=== PATIENT | female | born 1975 | race Caucasian/White ===

== ENCOUNTER 2018-11-27 07:34 | Outpatient (CLI) | payer BC ==
--- NOTE | 2018-11-27 09:04 | Mammography Report ---
Reason: SCREENING MAMMO Procedure Date: 11/27/2018 Accession Number: [id number] / [id number] Procedure: JEFF - Screening Mammo w/Kong CPT Code: FULL RESULT: EXAM: Screening Mammo w/Kong DATE: 11/27/2018 8:37 AM CLINICAL HISTORY: Routine screening. Baseline exam. No reported personal or family history of breast cancer. TECHNIQUE: Bilateral CC and MLO views were obtained. COMPARISON: None FINDINGS: The breasts demonstrate heterogeneously dense fibroglandular parenchyma bilaterally. Bilateral breasts: There are no suspicious masses, calcifications or areas of distortion. Few benign morphology calcifications are noted in the upper outer left breast. IMPRESSION: Benign findings RECOMMENDATION: Routine annual screening unless otherwise clinically indicated. BI-RADS CATEGORY 2: Benign findings STANDARD QUALIFYING STATEMENTS: 1. This examination was not reviewed with the aid of Computer-Aided Detection (CAD). 2. A negative or benign imaging report should not preclude biopsy if clinically suspicious findings are present. 3. Dense breasts may obscure an underlying neoplasm. 4. This examination was reviewed with the aid of 3D breast imaging (tomosynthesis).
== END 2018-11-27 07:35 | disposition home or self-care (01) ==
LOC: DI 07:34
PROVIDERS: ATTEND Physician Assistant Medical
DX: Z12.31 Encounter for screening mammogram for malignant neoplasm of breast (principal)
CPT/HCPCS: 77063; 77067

== ENCOUNTER 2020-08-29 07:35 | Outpatient (CLI) | payer BC | END 2020-08-29 23:59 | disposition home or self-care (01) | LOC: LAB.R 07:35 | PROVIDERS: ATTEND Physician Assistant Medical | DX: J30.2 Other seasonal allergic rhinitis (principal); Z20.828 Contact with and (suspected) exposure to other viral communicable diseases ==

== ENCOUNTER 2021-01-13 08:00 | Outpatient (CLI) | payer BC ==
[2021-01-13 17:54] LABS: BASOPHILS # (AUTO) 0.1 10^3/uL (0.0-0.1); BASOPHILS % (AUTO) 0.7 %; EOSINOPHILS # (AUTO) 0.2 10^3/uL (0.0-0.7); EOSINOPHILS % (AUTO) 1.9 %; HCT - HEMATOCRIT 43.7 % (37.0-47.0); HGB - HEMOGLOBIN 14.4 g/dL (12.0-16.0); LYMPHOCYTES % (AUTO) 26.7 %; MEAN CORPUSCULAR HEMOGLOBIN 29.4 pg (27.0-31.0); MEAN CORPUSCULAR VOLUME 89.2 fL (81.0-99.0); MEAN PLATELET VOLUME 10.2 fL (7.9-10.8); MONOCYTES # (AUTO) 0.7 10^3/uL (0.0-1.0); MONOCYTES % (AUTO) 5.8 %; NEUTROPHILS # (AUTO) 7.3 10^3/uL (1.5-6.6); NEUTROPHILS % (AUTO) 64.7 %; PLT - PLATELET COUNT 365 10^3/uL (130-450); RED CELL DISTRIBUTION WIDTH 12.9 % (12.0-15.0); WHITE BLOOD COUNT 11.3 x10^3/uL (4.8-10.8)
[2021-01-13 18:08] LABS: ALBUMIN 4.7 g/dL (3.2-5.5); ALBUMIN/GLOBULIN RATIO 1.4 (1.0-2.2); ALKALINE PHOSPHATASE 79 IU/L (42-121); ALT ALANINE AMINOTRANSFERASE 21 IU/L (10-60); AST ASPARTATE AMINOTRANSFERASE 20 IU/L (10-42); BILIRUBIN,TOTAL 0.5 mg/dL (0.2-1.0); BUN - BLOOD UREA NITROGEN 11 mg/dL (6-20); CALCIUM 9.5 mg/dL (8.5-10.3); CARBON DIOXIDE - CO2 27 mmol/L (21-32); CHLORIDE 100 mmol/L (101-111); CHOL/HDL RATIO 3.3 (<4.4); CHOLESTEROL 173 mg/dL; CREATININE 0.7 mg/dL (0.4-1.0); GFR - MDRD 91 (>89); GLUCOSE 94 mg/dL (70-100); HDL CHOLESTEROL 53 mg/dL; LDL CHOLESTEROL,CALCULATED 83 mg/dL; LDL/HDL RATIO 1.6 (<4.4); POTASSIUM 3.9 mmol/L (3.5-5.0); SODIUM 136 mmol/L (135-145); TRIGLYCERIDES 184 mg/dL; VLDL CHOLESTEROL 37 mg/dL
[2021-01-13 18:22] LABS: THYROID STIMULATING HORMONE 4.04 uIU/mL (0.34-5.60)
== END 2021-01-13 23:59 | disposition home or self-care (01) ==
LOC: LAB.WCP 08:00
PROVIDERS: ATTEND Nurse Practitioner Family
DX: Z00.00 Encounter for general adult medical examination without abnormal findings (principal)
CPT/HCPCS: 36415; 80053; 80061; 83721; 84443; 85025

== ENCOUNTER 2022-11-01 14:04 | Outpatient (CLI) | payer BC ==
--- NOTE | 2022-11-02 10:36 | Mammography Report ---
BILATERAL DIGITAL SCREENING MAMMOGRAM 3D/2D: 11/01/2022 CLINICAL: Routine screening. Comparison is made to exam dated: 11/27/2018 mammogram - [facility]. Both breasts are heterogeneously dense, which may obscure small masses (category c / 51-75% glandular tissue). There are benign calcifications in the left breast. No significant masses, calcifications, or other findings are seen in either breast. There has been no significant interval change. IMPRESSION: BENIGN There is no mammographic evidence of malignancy. A 1 year screening mammogram is recommended. Based on the Tyrer Cuzick model (a risk assessment model) the patients lifetime risk is 9.6% and her 10 year risk is 1.6%. According to the ACR, ACS, and NCCN guidelines, an annual breast MRI exam ava g with mammogram is recommended if the patients lifetime risk is 20% or greater. This exam was interpreted at Station ID: [id number]. NOTE: For mammograms, a report in lay terms will be sent to the patient. Approximately 15% of breast malignancies will not be visualized mammographically. In the management of a palpable breast mass, a negative mammogram must not discourage biopsy of a clinically suspicious lesion. Electronically Signed By: Al Johnson M.D. atmax/hiwot:11/01/2022 15:19:35 letter sent: No_Letter ACR BI-RADS Category 2: Benign Finding(s) 3342F PARENCHYMAL PATTERN: (D) - The breast(s) demonstrate(s) heterogeneously dense fibroglandular parcharleney ma. BI-RADS CATEGORY: (2) - 2 RECOMMENDATION: (ANNUAL) - Recommend routine annual screening mammography. [id number] 1 year screening LATERALITY: (B)
== END 2022-11-01 14:05 | disposition home or self-care (01) ==
LOC: DI 14:04
DX: Z12.31 Encounter for screening mammogram for malignant neoplasm of breast (principal)

== ENCOUNTER 2023-03-11 09:11 | Outpatient (CLI) | payer BC ==
[2023-03-11 09:27] LABS: BASOPHILS # (AUTO) 0.1 10^3/uL (0.0-0.1); BASOPHILS % (AUTO) 1.1 %; EOSINOPHILS # (AUTO) 0.2 10^3/uL (0.0-0.7); EOSINOPHILS % (AUTO) 2.5 %; HCT - HEMATOCRIT 44.2 % (37.0-47.0); HGB - HEMOGLOBIN 14.8 g/dL (12.0-16.0); LYMPHOCYTES # (AUTO) 2.5 10^3/uL (1.5-3.5); LYMPHOCYTES % (AUTO) 30.2 %; MEAN CORPUSCULAR HEMOGLOBIN 29.1 pg (27.0-31.0); MEAN CORPUSCULAR HGB CONC 33.5 g/dL (32.0-36.0); MEAN CORPUSCULAR VOLUME 86.8 fL (81.0-99.0); MEAN PLATELET VOLUME 9.7 fL (7.9-10.8); MONOCYTES # (AUTO) 0.5 10^3/uL (0.0-1.0); MONOCYTES % (AUTO) 6.2 %; NEUTROPHILS % (AUTO) 59.8 %; PLT - PLATELET COUNT 329 10^3/uL (130-450); RED BLOOD COUNT 5.09 10^6/uL (4.20-5.40); RED CELL DISTRIBUTION WIDTH 12.7 % (12.0-15.0); WHITE BLOOD COUNT 8.3 x10^3/uL (4.8-10.8)
[2023-03-11 09:45] LABS: ALBUMIN 4.2 g/dL (3.2-5.5); ALBUMIN/GLOBULIN RATIO 1.1 (1.0-2.2); ALKALINE PHOSPHATASE 79 IU/L (42-121); ALT ALANINE AMINOTRANSFERASE 30 IU/L (10-60); AST ASPARTATE AMINOTRANSFERASE 25 IU/L (10-42); BILIRUBIN,TOTAL 0.7 mg/dL (0.2-1.0); BUN - BLOOD UREA NITROGEN 9 mg/dL (6-20); CALCIUM 8.9 mg/dL (8.5-10.3); CARBON DIOXIDE - CO2 28 mmol/L (21-32); CHLORIDE 102 mmol/L (101-111); CHOL/HDL RATIO 4.2 (<4.4); CHOLESTEROL 174 mg/dL; CREATININE 0.7 mg/dL (0.4-1.0); GFR - MDRD 90 (>89); GLUCOSE 99 mg/dL (70-100); HDL CHOLESTEROL 41 mg/dL; LDL CHOLESTEROL,CALCULATED 83 mg/dL; SODIUM 136 mmol/L (135-145); TOTAL PROTEIN 7.9 g/dL (6.7-8.2); TRIGLYCERIDES 251 mg/dL; VLDL CHOLESTEROL 50 mg/dL
== END 2023-03-11 09:12 | disposition home or self-care (01) ==
LOC: LAB 09:11
PROVIDERS: ATTEND Nurse Practitioner
DX: Z00.00 Encounter for general adult medical examination without abnormal findings (principal); Z13.220 Encounter for screening for lipoid disorders
CPT/HCPCS: 36415; 80053; 80061; 83721; 85025; 86900; 86901

== ENCOUNTER 2023-05-05 09:25 | Day surgery (SDC) | payer BC ==
[2023-05-05] MEDS ORDERED: LACTATED RINGERS 1,000 ML IV ONE ×2 (09:59→12:43)
[2023-05-05 10:06] LABS: HCG UR QUAL NEGATIVE
[2023-05-05] MEDS ORDERED: ATROPINE ABBOJECT 1 MG/10 ML SYRINGE IVP PRN (11:27)
[2023-05-05] MEDS ORDERED: MORPHINE 2 MG/ML CARPUJECT IVP PRN (11:27)
[2023-05-05] MEDS ORDERED: ONDANSETRON 4 MG/2 ML VIAL IVP PRN (11:27)
[2023-05-05] MEDS ORDERED: METOCLOPRAMIDE 10 MG/2 ML VIAL IVP PRN (11:27)
[2023-05-05] MEDS ORDERED: HYDROmorphone 0.5 MG/0.5 ML SYRINGE IVP PRN (11:27)
[2023-05-05] MEDS ORDERED: fentaNYL 100 MCG/2 ML VIAL IVP PRN (11:27)
[2023-05-05] MEDS ORDERED: ePHEDrine 50 MG/ML VIAL IVP PRN (11:27)
[2023-05-05] MEDS ORDERED: NALOXONE 0.4 MG/ML VIAL IVP PRN (11:27)
--- NOTE | 2023-05-05 11:27 | ANESTHESIA ---
Pre-Anesthesia VS, & Labs - Diagnosis RUBEN-3/HG81L - Procedure LEEP Vital Signs: Temp Pulse Resp BP Pulse Ox O2 Flow Rate 36.0 C L 66 16 107/84 H 97 0 05/05/23 09:59 05/05/23 09:59 05/05/23 09:59 05/05/23 09:59 05/05/23 09:59 05/05/23 09:59 Height: 5 ft 6 in Weight (kg): 69.2 kg Body Mass Index: 24.6 BMI Classification: Normal - NPO >8 hours - Is Patient ?: No Home Medications and Allergies Home Medications: Ambulatory Orders Loratadine [Claritin] 10 mg PO DAILY 04/29/23 Loratadine [Claritin] 10 mg PO DAILY 04/29/23 Allergies/Adverse Reactions: Allergies Allergy/AdvReac Type Severity Reaction Status Date / Time Sulfa (Sulfonamide Allergy makes face Verified 04/29/23 14:06 Antibiotics) red Anes History & Medical History - Anesthetic History Anesthesia Complications: reports: No previous complications Family history of Anesthesia Complications: Denies Family history of Malignant Hyperthermia: Denies - Medical History Cardiovascular: reports: None Pulmonary: reports: None Gastrointestinal: reports: None Urinary: reports: None Musculoskeletal: reports: None Endocrine/Autoimmune: reports: None Skin: reports: None - Surgical History Gynecologic: reports: Other (IUD removal and Essure placement under anesthesia) Other Past Surgical History: wisdom teeth extraction under anesthesia Exam General: Alert, Oriented x3, Cooperative Dental: WNL Mouth Openin Fingerbreadth Neck Mobility: Normal Mallampati classification: I Thyromental Distance: 4-6 cm Respiratory: Lungs clear Cardiovascular: Regular rate Plan Anesthesia Type: General Consent for Procedure(s) Verified and Reviewed: Yes Code Status: Attempt Resuscitation ASA classification: 2-Mild systemic disease Is this case an emergency?: No
[2023-05-05] MEDS ORDERED: LIDOCAINE-MPF 1% 30 ML VIAL ONE (11:31)
[2023-05-05] MEDS ORDERED: PROPOFOL 200 MG/20 ML VIAL IVP ONE (11:46)
[2023-05-05] MEDS ORDERED: KETOROLAC 30 MG/ML VIAL ONE (11:46)
[2023-05-05] MEDS ORDERED: MIDAZOLAM 2 MG/2 ML VIAL ONE (11:46)
[2023-05-05] MEDS ORDERED: ACETAMINOPHEN 1,000 MG/100 ML 1,000 MG/100 ML BAG IV ONE (11:48)
[2023-05-05] MEDS ORDERED: LACTATED RINGERS 1,000 ML IV SCH (12:00)
[2023-05-05] MEDS ORDERED: LIDOCAINE 1% 50 ML MDV SUBQ ONE ×2 (12:09)
[2023-05-05] MEDS ORDERED: FERRIC SUBSULFATE 8 ML SOLUTION (FOR OR) TOP ONE (12:09)
[2023-05-05] MEDS ORDERED: ePHEDrine 50 MG/ML VIAL IVP ONE (12:22)
[2023-05-05] MEDS ORDERED: LACTATED RINGERS 950 ML IV ONE (12:33)
[2023-05-05] MEDS ORDERED: LACTATED RINGERS 0 ML IV ONE (12:33)
[2023-05-05] MEDS ORDERED: traMADol 50 MG TABLET PO PRN (12:42)
--- NOTE | 2023-05-05 12:49 | OPERATIVE REPORT ---
Operative Report - General Procedure Date: 05/05/23 Planned Procedure: LEEP Pre-Op Diagnosis: RUBEN 3 Procedure Performed: LEEP Post Op Diagnosis: RUBEN 3 - Procedure Note Primary Surgeon: Rachel Aviles DO Anesthesia Provider: Sofie Rucker CRNA Pathology: LEEP specimen of cervix Estimated Blood Loss (mL): 20 Indications: RUBEN 3 Findings: Normal appearing vagina/cervix Complications: None - Other Other Information/Narrative: Transferred to OR. Anesthesia obtained. Placed in dorsal lithotomy position. Prepped and draped in sterile fashion. Insulated speculum and vaginal sidewall retractor placed. Lidocaine 1% infiltrated into cervix. Loop electrode used to excise LEEP specimen. Loop electrode used for conization with removal of all of transformation zone and portion of endocervix. Roller ball bovie used for hemostasis. Monsel's solution then placed at LEEP site. Hemostasis. Specimen marked at 12 o'clock and sent to pathology. Speculum removed. Counts correct x2. Transferred to PACU in stable condition.
[2023-05-05] MEDS ORDERED: ACETAMINOPHEN 500 MG TABLET PO SCH (13:00)
[2023-05-05 13:29] VITALS: BP 103/69; O2SAT 99
--- NOTE | 2023-05-05 13:37 | ANESTHESIA POST OP EVALUATION ---
Anesthesia Post Eval - Post Anesthesia Eval Vitals: Last Vital Signs Temp 36.1 C L 05/05/23 13:18 Pulse 59 L 05/05/23 13:18 Resp 16 05/05/23 13:18 BP 103/69 05/05/23 13:18 Pulse Ox 99 05/05/23 13:18 O2 Flow Rate 0 05/05/23 09:59 CV Function Including HR & BP: Stable Pain Control: Satisfactory Nausea & Vomiting: Negative Mental Status: Baseline Respiratory Status: Airway Patent Hydration Status: Satisfactory Anesthesia Complications: None
== END 2023-05-05 09:26 | disposition home or self-care (01) ==
LOC: SDS 09:25
PROVIDERS: ATTEND Obstetrics & Gynecology
PROC: 0UBC7ZX Excision of Cervix, Via Natural or Artificial Opening, Diagnostic (ICD-10-PCS; principal; 2023-05-05 11:30)
DX: D06.9 Carcinoma in situ of cervix, unspecified (principal); Z32.02 Encounter for pregnancy test, result negative; Z87.891 Personal history of nicotine dependence
CPT/HCPCS: 57522; 81025; J0131; J7120

== ENCOUNTER 2023-05-15 08:49 | Emergency (ER) | payer BC ==
[2023-05-15 09:36] LABS: BASOPHILS % (AUTO) 0.8 %; EOSINOPHILS % (AUTO) 0.4 %; HCT - HEMATOCRIT 45.3 % (37.0-47.0); HGB - HEMOGLOBIN 14.7 g/dL (12.0-16.0); LYMPHOCYTES # (AUTO) 1.5 10^3/uL (1.5-3.5); LYMPHOCYTES % (AUTO) 29.8 %; MEAN CORPUSCULAR HEMOGLOBIN 29.1 pg (27.0-31.0); MEAN CORPUSCULAR HGB CONC 32.5 g/dL (32.0-36.0); MEAN CORPUSCULAR VOLUME 89.7 fL (81.0-99.0); MEAN PLATELET VOLUME 10.1 fL (7.9-10.8); MONOCYTES # (AUTO) 0.4 10^3/uL (0.0-1.0); MONOCYTES % (AUTO) 8.8 %; PLT - PLATELET COUNT 278 10^3/uL (130-450); RED BLOOD COUNT 5.05 10^6/uL (4.20-5.40); RED CELL DISTRIBUTION WIDTH 13.1 % (12.0-15.0)
--- NOTE | 2023-05-15 10:29 | ED Physician Documentation ---
PD HPI FEMALE - Stated complaint Stated Complaint: FEMALE - Chief complaint Chief Complaint: Abd Pain - History obtained from History obtained from: Patient - Additional information Additional information: The patient comes to the emergency department chief complaint of vaginal bleeding status post cervical LEEP procedure about 10 days ago. She states everything was going fine, other than some postprocedural bleeding, when she began to notice heavier bleeding and passage of some clots. She states it was the clots that concerned her the most. The patient states she is having to change her pad about once every 4 hours. She denies any foul-smelling discharge. She states that she is not due for her. For another week and a half or so. No fevers or chills. No other complaints at this time. No trauma. She states she had the LEEP because of an abnormal Pap smear. 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 (IUD removal and Essure placement under anesthesia) - Present Medications Home Medications: Ambulatory Orders Medication Instructions Recorded Confirmed Loratadine [Claritin] 10 mg PO DAILY 04/29/23 05/05/23 - Allergies Allergies/Adverse Reactions: Allergies Allergy/AdvReac Type Severity Reaction Status Date / Time Sulfa (Sulfonamide Allergy makes face Verified 04/29/23 14:06 Antibiotics) red PD ED PE NORMAL - Vitals Vital signs reviewed: Yes - General General: Alert and oriented X 3, No acute distress, Well developed/nourished - HEENT HEENT: Atraumatic, PERRL, EOMI, Moist mucous membranes - Neck Neck: Supple, no meningeal sign - Cardiac Cardiac: RRR, No murmur - Respiratory Respiratory: No respiratory distress, Clear bilaterally - Abdomen Abdomen: Soft, Non tender, Non distended - Female Female : Other (Normal external female genitalia. Minimal vaginal bleeding at introitus. Cervical exam reveals healing eschars consistent with recent LEEP procedure. No pulsatile or active bleeding from eschars. Slow trickle of blood from cervical os. Few tiny clots removed.) - Derm Derm: Warm and dry - Extremities Extremities: No deformity - Neuro Neuro: Alert and oriented X 3 - Psych Psych: Normal mood, Normal affect Results - Vitals Vitals: Oxygen O2 Source Room air - Labs Labs: Laboratory Tests 05/15/23 09:20 WBC 5.0 RBC 5.05 Hgb 14.7 Hct 45.3 MCV 89.7 MCH 29.1 MCHC 32.5 RDW 13.1 Plt Count 278 MPV 10.1 Neut # (Auto) 3.0 Lymph # (Auto) 1.5 [place] # (Auto) 0.4 Eos # (Auto) 0.0 Baso # (Auto) 0.0 Absolute Nucleated RBC 0.00 Nucleated RBC % 0.0 PD Medical Decision Making - ED course Complexity details: reviewed results, re-evaluated patient, considered differential, d/w patient ED course: The patient's hemoglobin was normal and at baseline for her. Her speculum exam revealed eschars from the LEEP procedure but no evidence of significant bleeding and no evidence of arterial bleed. I discussed the case with Dr. Aviles who was on-call and had done the procedure. She stated that she would give the patient a call and determine whether she needs to be seen sooner than her May 25 appointment. For now, she has recommended patient be discharged home with return precautions. I have discussed this with the patient who is agreeable to the plan. Departure - Departure Disposition: 01 Home, Self Care Clinical Impression: Bleeding of cervix Condition: Stable Instructions: LEEP Comments: Examination of your cervix reveals a slow ooze of blood, but nothing pulsatile or high-volume. You did have some clots that had accumulated around your cervix, but clotting is expected with normal blood, especially if the blood sits around a bit. It is not necessarily something to be concerned about in and of itself, as long as you are not losing large volumes of blood. At this point in time, your rate of bleeding actually appears to be fairly slow. We begin to become concerned if you are soaking 1 or more pads per hour. Your red blood cell levels are within the normal range and also, not significantly changed from prior levels. Your case has been discussed with Dr. Aviles, who will give you a call to check on you and see if she thinks you need to be seen sooner. At this point, though, she does not feel you need to be emergently re-evaluated by her. Forms: PCP List Discharge Date/Time: 05/15/23 10:49
[2023-05-15 10:49] VITALS: BP 107/74; O2SAT 98
== END 2023-05-15 10:49 | disposition home or self-care (01) ==
LOC: ED 08:49
DX: N88.8 Other specified noninflammatory disorders of cervix uteri (principal)
CPT/HCPCS: 36415; 85025; 99283

== ENCOUNTER 2023-05-26 20:29 | Emergency (ER) | payer BC ==
[2023-05-26] MEDS ORDERED: SODIUM CHLORIDE 0.9% 1,000 ML IV STA (20:41)
--- NOTE | 2023-05-26 20:41 | ED Physician Documentation ---
PD HPI ABD PAIN - Stated complaint Stated Complaint: BLEED - History obtained from History obtained from: Patient - Additional information Additional information: She is about 20 days out from a LEEP procedure. Was seen by my partner about 10 days ago for bleeding. Good H&H at that time. Since then she had stopped bleeding but it started suddenly again tonight around 730 and is gushing blood. She had a syncopal episode in the waiting room. And appearing pale per the . No other health history. 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 (IUD removal and Essure placement under anesthesia) - Present Medications Home Medications: Ambulatory Orders Medication Instructions Recorded Confirmed Loratadine [Claritin] 10 mg PO DAILY 04/29/23 05/05/23 - Allergies Allergies/Adverse Reactions: Allergies Allergy/AdvReac Type Severity Reaction Status Date / Time Sulfa (Sulfonamide Allergy makes face Verified 04/29/23 14:06 Antibiotics) red PD ED PE NORMAL - Vitals Vital signs reviewed: Yes - General General: Alert and oriented X 3, No acute distress, Well developed/nourished, Other (She does appear pale but her vital signs are reassuring.) - Cardiac Cardiac: RRR, No murmur - Respiratory Respiratory: No respiratory distress, Clear bilaterally - Abdomen Abdomen: Non tender - Female Female : Other (Exam done with June RN present and chaperoning. Large amount of clot in the vault which was cleared and then some active bleeding from what looked like the posterior cervix.) - Neuro Neuro: Alert and oriented X 3, Normal speech Results - Vitals Vitals: Vital Signs - 24 hr 05/26/23 20:40 Temperature 36.0 C L Heart Rate 87 Respiratory 20 Rate Blood Pressure 119/83 H O2 Saturation 99 Oxygen O2 Source Room air - Labs Labs: Laboratory Tests 05/26/23 05/26/23 05/26/23 20:47 20:47 20:47 WBC 12.2 H RBC 4.70 Hgb 13.6 Hct 41.5 MCV 88.3 MCH 28.9 MCHC 32.8 RDW 13.0 Plt Count 370 MPV 9.5 Neut # (Auto) 6.7 H Lymph # (Auto) 4.3 H [place] # (Auto) 0.9 Eos # (Auto) 0.2 Baso # (Auto) 0.1 Absolute Nucleated RBC 0.00 Nucleated RBC % 0.0 Sodium 138 Potassium 3.4 L Chloride 103 Carbon Dioxide 26 Anion Gap 9.0 BUN 14 Creatinine 0.8 Estimated GFR (MDRD) 78 L Glucose 130 H Calcium 9.1 Beta HCG, Quant < 0.6 Blood Type O POSITIVE Antibody Screen NEGATIVE PD Medical Decision Making - ED course ED course: 47-year-old woman with post LEEP bleeding and syncope here. Dr. Aviles will come in and see her and we spoke at approximate 10 PM. She requested Monsel marilyn ution be available but I was told later by the RN that there was none in the building so silver nitrate ordered. Seen by cashier manager who did not see any active bleeding and did not feel there was any cautery or other intervention necessary. Departure - Departure Disposition: 01 Home, Self Care Clinical Impression: Bleeding of cervix Condition: Stable Record reviewed to determine appropriate education?: Yes Comments: Our cashier manager did not see any active bleeding. Please return if you worsen.
[2023-05-26 20:54] LABS: BASOPHILS # (AUTO) 0.1 10^3/uL (0.0-0.1); BASOPHILS % (AUTO) 0.7 %; EOSINOPHILS # (AUTO) 0.2 10^3/uL (0.0-0.7); EOSINOPHILS % (AUTO) 1.3 %; HCT - HEMATOCRIT 41.5 % (37.0-47.0); HGB - HEMOGLOBIN 13.6 g/dL (12.0-16.0); LYMPHOCYTES # (AUTO) 4.3 10^3/uL (1.5-3.5); MEAN CORPUSCULAR HEMOGLOBIN 28.9 pg (27.0-31.0); MEAN CORPUSCULAR HGB CONC 32.8 g/dL (32.0-36.0); MEAN CORPUSCULAR VOLUME 88.3 fL (81.0-99.0); MEAN PLATELET VOLUME 9.5 fL (7.9-10.8); MONOCYTES # (AUTO) 0.9 10^3/uL (0.0-1.0); MONOCYTES % (AUTO) 7.5 %; NEUTROPHILS # (AUTO) 6.7 10^3/uL (1.5-6.6); NEUTROPHILS % (AUTO) 55.2 %; PLT - PLATELET COUNT 370 10^3/uL (130-450); WHITE BLOOD COUNT 12.2 x10^3/uL (4.8-10.8)
[2023-05-26 21:55] LABS: BUN - BLOOD UREA NITROGEN 14 mg/dL (6-20); CALCIUM 9.1 mg/dL (8.5-10.3); CARBON DIOXIDE - CO2 26 mmol/L (21-32); CHLORIDE 103 mmol/L (101-111); CREATININE 0.8 mg/dL (0.4-1.0); GFR - MDRD 78 (>89); GLUCOSE 130 mg/dL (70-100); POTASSIUM 3.4 mmol/L (3.5-5.0); SODIUM 138 mmol/L (135-145)
[2023-05-26] MEDS ORDERED: FERRIC SUBSULFATE 8 ML SOLUTION (FOR OR) TOP STA (22:04)
[2023-05-26] MEDS ORDERED: SILVER NITRATE APPLICATOR TOP STA (22:19)
--- NOTE | 2023-05-26 23:03 | CONSULTATION NOTE ---
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: Other (IUD removal and Essure placement under anesthesia) Meds/Allgy - Home Medications Home Medications: Ambulatory Orders Medication Instructions Recorded Confirmed Loratadine [Claritin] 10 mg PO DAILY 04/29/23 05/05/23 - Allergies Allergies/Adverse Reactions: Allergies Allergy/AdvReac Type Severity Reaction Status Date / Time Sulfa (Sulfonamide Allergy makes face Verified 04/29/23 14:06 Antibiotics) red Exam - Vital Signs Vital Signs: Vital Signs x48h Temp Pulse Resp BP Pulse Ox 05/26/23 20:40 96.8 F L 87 20 119/83 H 99 Conclusion/Plan - Problem List (1) S/P LEEP Conclusion/Plan: 47yo with LMP 04/26/23, s/p LEEP 05/05/23, post op 3w presents to ED with concern of vaginal bleeding. She has been having intermittent bleeding since procedure. This recently stopped. She was seen yesterday in the office for her post operative visit with benign exam, cervix healing well. Tonight she had gushing of blood and passing clots. Reports periods are not usually so heavy. LMP was 04/26/23 and she is due for period but was unsure due to the recent procedure and bleeding episodes. She became lightheaded after heavy bleeding and presented to ED. VSS Hgb 13.6 GEN: NAD, lying in bed Resp: no distress Speculum: no clots visualized currently, light bleeding cleared and cervix evaluated. LEEP site is healing well, no sites of oozing or active bleeding. Light bleeding noted at external os. 47yo with LMP 04/26/23, s/p LEEP 05/05/23, post op 3w and likely currently with menses - Reassurance given, cervix LEEP site healing well with no active bleeding - Likely on menses, if she continues to have heavy periods may follow up in office. May have had vasovagal episode with clots passing through cervix. - May resume normal activities. May use tampons/intercourse in one week. - Again reviewed RUBEN 3 results, with negative margins (2) Menstrual bleeding problem Conclusion/Plan: Currently with menses. Bleeding precautions if saturating pad every hour for more than two hours. - Lab Results Fish Bones: 05/26/23 20:47 05/26/23 20:47
[2023-05-26 23:39] VITALS: BP 102/64; O2SAT 98
== END 2023-05-26 23:33 | disposition home or self-care (01) ==
LOC: ED 20:29
DX: N93.8 Other specified abnormal uterine and vaginal bleeding (principal)
CPT/HCPCS: 36415; 80048; 84702; 85014; 85018; 85025; 86850; 86900; 86901; 99283; 99284